=== PATIENT | female | born 1970 | race Caucasian/White ===

== ENCOUNTER 2019-07-20 19:04 | Inpatient (IN) | payer OTHER ==
[~2019-07-20] VITALS: Ht 157.5 cm; Wt 72.6 kg
== END 2019-07-22 12:21 | disposition home or self-care (01) | DRG 340 ==
LOC: ER 19:04 → SURG 23:04
PROVIDERS: ADMIT Surgery
PROC: BW21Y0Z Computerized Tomography (CT Scan) of Abdomen and Pelvis using Other Contrast, Unenhanced and Enhanced (ICD-10-PCS; 2019-07-20)
PROC: 0DTJ4ZZ Resection of Appendix, Percutaneous Endoscopic Approach (ICD-10-PCS; principal; 2019-07-21 11:00)
DX: K35.33 Acute appendicitis with perforation, localized peritonitis, and gangrene, with abscess (principal); K52.89 Other specified noninfective gastroenteritis and colitis; R31.29 Other microscopic hematuria; B96.29 Other Escherichia coli [E. coli] as the cause of diseases classified elsewhere

== ENCOUNTER 2021-07-28 00:25 | Emergency (ER) | payer OTHER ==
[~2021-07-28] VITALS: Ht 157.5 cm; Wt 76.2 kg
[2021-07-28] MEDS ORDERED: IBU800 MG PO (09:33)
== END 2021-07-28 09:49 | disposition home or self-care (01) ==
LOC: ER 00:25
DX: K63.89 Other specified diseases of intestine (principal)